=== PATIENT | female | born 1995 | race Two or more races ===

== ENCOUNTER 2018-08-02 10:47 | Observation (INO) | payer MEDICAID ==
[~2018-08-02] VITALS: Ht 152.4 cm; Wt 52.6 kg
[2018-08-02] MEDS ORDERED: NIFEdipine 10 MG CAP PO ONE (12:00)
== END 2018-08-02 12:55 | disposition home or self-care (01) | DRG 563 ==
LOC: LDRP 10:47
PROVIDERS: ADMIT Specialist; ATTEND Specialist
DX: O60.02 Preterm labor without delivery, second trimester (principal); O62.9 Abnormality of forces of labor, unspecified; Z3A.28 28 weeks gestation of pregnancy
CPT/HCPCS: 59025; 81002; G0378

== ENCOUNTER 2018-08-26 15:00 | Observation (INO) | payer MEDICAID ==
[~2018-08-26] VITALS: Ht 162.6 cm; Wt 78.5 kg
[2018-08-26] MEDS ORDERED: LACTATED RINGER'S 1,000 ML IV SCH (15:27)
[2018-08-26] MEDS ORDERED: LACTATED RINGER'S 1,000 ML IV ONE ×3 (15:27→16:15)
[2018-08-26] MEDS ORDERED: TERBUTALINE SULFATE 1 MG/ML 1ML VIAL SC SCH (16:15)
[2018-08-26] MEDS ORDERED: TERBUTALINE SULFATE 1 MG/ML 1ML VIAL SC ONE (16:22)
[2018-08-26] MEDS ORDERED: HYDR250I6 IM (16:35)
[2018-08-26] MEDS ORDERED: NIF10C PO (16:35)
[2018-08-26] MEDS ORDERED: PREN-96 PO (16:35)
[2018-08-26] MEDS ORDERED: NIFEdipine 10 MG CAP PO ONE (19:00)
[2018-08-26] MEDS ORDERED: PENICILLIN G POT 5MIL/D5 50ML 50 ML IV ONE (20:15)
[2018-08-27] MEDS ORDERED: PENICILLIN G POTASSIUM 2,500,000 UNITS in D5W 5% 50 ML IV SCH (00:30)
== END 2018-08-26 19:33 | disposition home or self-care (01) | DRG 563 ==
LOC: LDRP 15:00
PROVIDERS: ADMIT Specialist; ATTEND Specialist
DX: O60.03 Preterm labor without delivery, third trimester (principal); O26.893 Other specified pregnancy related conditions, third trimester; N89.8 Other specified noninflammatory disorders of vagina; Z3A.32 32 weeks gestation of pregnancy
CPT/HCPCS: 59025; 76805; 81002; 96372; G0378; 96365; 96366

== ENCOUNTER 2021-01-06 14:00 | Observation (INO) | payer MEDICAID ==
[~2021-01-06] VITALS: Ht 152.4 cm; Wt 62.1 kg
[~2021-01-06 14:00] MED LIST: PREN-96 PO
[2021-01-06] MEDS ORDERED: TERBUTALINE SULFATE 1 MG/ML 1ML VIAL SC SCH (14:15)
[2021-01-06] MEDS ORDERED: BETAMETHASONE ACET (6MG/ML) 5ML VIAL ONE (14:52)
[2021-01-06 15:04] LABS: Urine Amorphous Crystal FEW /hpf (None Seen); Urine Bacteria FEW /hpf (None Seen); Urine Blood 1+ /uL (Negative); Urine Mucus FEW (None Seen); Urine Specific Gravity 1.019 (1.001-1.035); Urine WBC 156 /hpf (0 - 5); Urine WBC Clumps PRESENT /hpf (None Seen)
[2021-01-06] MEDS ORDERED: NIF10C PO (15:51)
[2021-01-06] MEDS ORDERED: BETAMETHASONE ACET (6MG/ML) 5ML VIAL IM SCH (22:00)
== END 2021-01-06 15:55 | disposition home or self-care (01) ==
LOC: LDRP 14:00
PROVIDERS: ADMIT Obstetrics & Gynecology; ATTEND Obstetrics & Gynecology
DX: O60.03 Preterm labor without delivery, third trimester (principal); O26.873 Cervical shortening, third trimester; Z3A.29 29 weeks gestation of pregnancy
CPT/HCPCS: 59025; 81001; 81002; 96372; G0378; J0702; J3105

== ENCOUNTER 2021-01-07 14:12 | Observation (INO) | payer MEDICAID ==
[~2021-01-07] VITALS: Ht 60 cm; Wt 62.1 kg
[~2021-01-07 14:12] MED LIST changes: +NIF10C PO
[2021-01-07] MEDS ORDERED: BETAMETHASONE ACET (6MG/ML) 5ML VIAL IM ONE (14:30)
== END 2021-01-07 15:18 | disposition home or self-care (01) ==
LOC: LDRP 14:12
PROVIDERS: ADMIT Obstetrics & Gynecology; ATTEND Obstetrics & Gynecology
DX: O60.03 Preterm labor without delivery, third trimester (principal); O34.63 Maternal care for abnormality of vagina, third trimester; N89.8 Other specified noninflammatory disorders of vagina; Z3A.29 29 weeks gestation of pregnancy
CPT/HCPCS: 59025; 81002; 96372; G0378; J0702

== ENCOUNTER 2021-01-13 12:15 | Observation (INO) | payer MEDICAID | END 2021-01-13 13:20 | disposition home or self-care (01) | LOC: LDRP 12:15 | PROVIDERS: ADMIT Specialist; ATTEND Specialist | DX: O60.03 Preterm labor without delivery, third trimester (principal); Z3A.30 30 weeks gestation of pregnancy | CPT/HCPCS: 59025; 81002; G0378 ==

== ENCOUNTER 2021-01-21 11:55 | Observation (INO) | payer MEDICAID | END 2021-01-21 13:31 | disposition home or self-care (01) | LOC: LDRP 11:55 | PROVIDERS: ADMIT Obstetrics & Gynecology; ATTEND Obstetrics & Gynecology | DX: O60.03 Preterm labor without delivery, third trimester (principal); Z3A.31 31 weeks gestation of pregnancy | CPT/HCPCS: 59025; 81002; G0378 ==

== ENCOUNTER 2021-01-27 11:20 | Observation (INO) | payer MEDICAID | END 2021-01-27 13:08 | disposition home or self-care (01) | LOC: LDRP 11:20 | PROVIDERS: ADMIT Specialist; ATTEND Specialist | DX: O60.03 Preterm labor without delivery, third trimester (principal); Z3A.32 32 weeks gestation of pregnancy | CPT/HCPCS: 59025; 81002; G0378 ==

== ENCOUNTER 2021-02-04 14:05 | Observation (INO) | payer MEDICAID | END 2021-02-04 15:04 | disposition home or self-care (01) | LOC: LDRP 14:05 | PROVIDERS: ADMIT Obstetrics & Gynecology; ATTEND Obstetrics & Gynecology | DX: O60.03 Preterm labor without delivery, third trimester (principal); Z3A.33 33 weeks gestation of pregnancy | CPT/HCPCS: 59025; 81002; G0378 ==

== ENCOUNTER 2021-02-11 12:15 | Observation (INO) | payer MEDICAID | END 2021-02-11 13:44 | disposition home or self-care (01) | LOC: LDRP 12:15 | PROVIDERS: ADMIT Obstetrics & Gynecology; ATTEND Obstetrics & Gynecology | DX: O60.03 Preterm labor without delivery, third trimester (principal); Z3A.34 34 weeks gestation of pregnancy | CPT/HCPCS: 59025; 81002; G0378 ==

== ENCOUNTER → 2021-02-24 | Outpatient (CLI) | payer MEDICAID ==
[2021-02-24 12:21] LABS: Basophils # (auto) 0 10 ^3/uL (0-0.2); Basophils % (auto) 0.5 % (0.0-2.0); Eosinophils # (auto) 0.5 10 ^3/uL (0-0.8); Eosinophils % (auto) 5.6 % (0.0-7.0); Hematocrit 37.1 % (36.0-46.0); Hemoglobin 12.5 g/dL (12.2-16.2); Lymphocytes % (auto) 24.5 % (10.0-50.0); Mean Corpuscular Hemoglobin 32.6 pg (28.0-32.0); Mean Corpuscular Hgb Conc. 33.8 g/dL (32.0-36.0); Mean Corpuscular Volume 96.6 fL (80.0-100.0); Monocytes # (auto) 0.6 10 ^3/uL (0-1.3); Monocytes % (auto) 7.6 % (0.0-12.0); Neutrophils # (auto) 5.1 10 ^3/uL (1.6-8.6); Neutrophils % (auto) 61.8 % (37.0-80.0); Nucleated Red Blood Cells % 0.1 %; Platelet Count (auto) 265 10^3/uL (140-450); Red Blood Cells 3.84 10^6/uL (4.0-5.20); Red Cell Distribution Width 13.7 % (11.8-14.3); White Blood Cell 8.2 10^3/uL (4.4-10.8)
[2021-02-25 04:06] LABS: RPR Non Reactive (Non Reactive)
== END | disposition home or self-care (01) ==
LOC: LAB 12:00
PROVIDERS: ATTEND Obstetrics & Gynecology
DX: Z34.80 Encounter for supervision of other normal pregnancy, unspecified trimester (principal)
CPT/HCPCS: 36415; 84112; 85025; 86592; 87081

== ENCOUNTER 2021-03-18 12:22 | Inpatient (IN) | payer MEDICAID ==
[~2021-03-18] VITALS: Ht 152.4 cm; Wt 72.1 kg
[2021-03-18] MEDS ORDERED: BUTORPHANOL TARTRATE 2 MG/1 ML VIAL IV PRN ×2 (12:45)
[2021-03-18] MEDS ORDERED: LACTATED RINGER'S 1,000 ML IV SCH (12:45)
[2021-03-18] MEDS ORDERED: LACT. RINGERS/OXYTOCIN 20UNITS 500 ML IV ONE ×2 (12:45→13:15)
[2021-03-18] MEDS ORDERED: PROMETHAZINE HCL 25 MG/ML 1ML IV PRN (12:45)
[2021-03-18] MEDS ORDERED: LIDOCAINE 2%HCL (LOCAL ANESTH.) INJ 20ML MDV IJ ONE (12:45)
[2021-03-18] MEDS ORDERED: LIDOCAINE 2%HCL (LOCAL ANESTH.) INJ 20ML MDV ONE (13:50)
[2021-03-18] MEDS ORDERED: METHYLERGONOVINE MALEATE 0.2 MG/ML AMP IM ONE (13:56)
[2021-03-18] MEDS ORDERED: miSOPROStol 100 mcg TAB ONE (14:00)
[2021-03-18] MEDS: WITCH HAZEL-GLYCERIN PAD TOP PRN ×2 (14:18→14:38)
[2021-03-18] MEDS: PHISODERM TOP SOLN 240ML BTL TOP PRN ×2 (14:18→14:38)
[2021-03-18] MEDS: DERMOPLAST 60ML BOTTLE TOP PRN ×2 (14:18→14:38)
[2021-03-18 14:19] LABS: Basophils # (auto) 0 10 ^3/uL (0-0.2); Basophils % (auto) 0.3 % (0.0-2.0); Eosinophils # (auto) 0.2 10 ^3/uL (0-0.8); Eosinophils % (auto) 1.8 % (0.0-7.0); Hematocrit 39.3 % (36.0-46.0); Hemoglobin 13.4 g/dL (12.2-16.2); Lymphocytes % (auto) 18.1 % (10.0-50.0); Mean Corpuscular Volume 97.2 fL (80.0-100.0); Monocytes # (auto) 0.8 10 ^3/uL (0-1.3); Monocytes % (auto) 7.2 % (0.0-12.0); Neutrophils # (auto) 8.1 10 ^3/uL (1.6-8.6); Neutrophils % (auto) 72.6 % (37.0-80.0); Platelet Count (auto) 247 10^3/uL (140-450); Red Blood Cells 4.05 10^6/uL (4.0-5.20); Red Cell Distribution Width 14.3 % (11.8-14.3); White Blood Cell 11.1 10^3/uL (4.4-10.8)
[2021-03-18 14:35] LABS: Albumin 2.7 g/dL (3.4-5.0); Calcium 8.6 mg/dL (8.5-10.1)
[2021-03-18 14:36] LABS: INR 0.96 (0.9-1.15); Partial Thromboplastin Time 26.5 sec (23.0-31.2)
[2021-03-18 14:38] LABS: BUN/Creatinine Ratio 10.2; Bilirubin, Total 0.6 mg/dL (0.2-1.0)
[2021-03-18] MEDS ORDERED: POTASSIUM CHL 20 Meq TABLET PO ONE (15:00)
[2021-03-18] MEDS ORDERED: IBUPROFEN 600 MG TAB PO PRN (15:00)
[2021-03-18] MEDS ORDERED: ACETAMINOPHEN 325 MG TAB PO PRN (15:00)
[2021-03-18 15:05] VITALS: BP 127/66
[2021-03-18 15:34] VITALS: BP 117/60
[2021-03-18 16:00] VITALS: BP 112/55
[2021-03-18 16:45] LABS: Urine Bacteria NONE SEEN /hpf (None Seen); Urine Blood 3+ /uL (Negative); Urine Mucus FEW (None Seen); Urine Specific Gravity 1.014 (1.001-1.035); Urine WBC 30 /hpf (0 - 5)
[2021-03-18 17:05] LABS: Amphetamine Screen, Urine NEGATIVE (NEGATIVE); Barbiturate Scree,Urine NEGATIVE (NEGATIVE); Benzodiazephine Screen, Urine NEGATIVE (NEGATIVE); Cannabinoid Screen, Urine POSITIVE (NEGATIVE); Cocaine Screen, Urine NEGATIVE (NEGATIVE); Opiate Scree,Urine NEGATIVE (NEGATIVE); Phencyclidine Screen, Urine NEGATIVE (NEGATIVE)
[2021-03-18 17:31] VITALS: BP 112/64
[2021-03-18 19:15] VITALS: BP 129/60
[2021-03-18 23:00] VITALS: BP 104/85
[2021-03-19 02:48] VITALS: BP 114/68
[2021-03-19 06:30] VITALS: BP 99/53
[2021-03-19 07:06] LABS: RPR Non Reactive (Non Reactive)
[2021-03-19 11:00] VITALS: BP 94/57
[2021-03-19 17:17] VITALS: BP 104/57
== END 2021-03-19 17:17 | disposition home or self-care (01) | DRG 560 ==
LOC: LDRP 12:22 → OBSVTOIN 12:35 → LDRP 16:41
PROVIDERS: ADMIT Obstetrics & Gynecology; ATTEND Obstetrics & Gynecology
PROC: 0HQ9XZZ Repair Perineum Skin, External Approach (ICD-10-PCS; principal; 2021-03-18)
PROC: 10E0XZZ Delivery of Products of Conception, External Approach (ICD-10-PCS; 2021-03-18)
PROC: 10907ZC Drainage of Amniotic Fluid, Therapeutic from Products of Conception, Via Natural or Artificial Opening (ICD-10-PCS; 2021-03-18)
DX: O70.0 First degree perineal laceration during delivery (principal); Z20.822 Contact with and (suspected) exposure to COVID-19; Z37.0 Single live birth; Z3A.39 39 weeks gestation of pregnancy
CPT/HCPCS: 36415; 59025; 59409; 80053; 80307; 81001; 81002; 85025; 85610; 85730; 86592; 86850; 86900; 86901; 87426; 96360; 96361; 96365; 96366; 96372; G0378; J2590

== ENCOUNTER 2024-03-21 11:16 | Observation (INO) | payer MEDICAID ==
[~2024-03-21] VITALS: Ht 160 cm; Wt 58.5 kg
[~2024-03-21 11:16] MED LIST changes: -NIF10C PO
[2024-03-21] MEDS: BETAMETHASONE ACET (30mg/5ml) 5ml Vial 6mg/ml IM ONE (13:27)
[2024-03-21] MEDS: TERBUTALINE SULFATE 1 MG/ML 1ML VIAL SC SCH (13:27)
== END 2024-03-21 14:21 | disposition home or self-care (01) ==
LOC: UNDOADMOB 11:16 → LDRP 11:16
PROVIDERS: ADMIT Obstetrics & Gynecology; ATTEND Obstetrics & Gynecology
DX: O60.03 Preterm labor without delivery, third trimester (principal); O26.873 Cervical shortening, third trimester; O26.893 Other specified pregnancy related conditions, third trimester; N89.8 Other specified noninflammatory disorders of vagina; Z3A.33 33 weeks gestation of pregnancy
CPT/HCPCS: 59025; 76818; 81002; 94760; 96372; G0378; J0702; J3105

== ENCOUNTER 2024-03-22 13:08 | Observation (INO) | payer MEDICAID ==
[~2024-03-22] VITALS: Ht 152.4 cm; Wt 59.0 kg
[2024-03-22] MEDS: BETAMETHASONE ACET (30mg/5ml) 5ml Vial 6mg/ml IM ONE (13:42)
== END 2024-03-22 14:04 | disposition home or self-care (01) ==
LOC: LDRP 13:08 → UNDOADMOB 13:08 → LDRP 13:11
PROVIDERS: ADMIT Obstetrics & Gynecology; ATTEND Obstetrics & Gynecology
DX: O60.03 Preterm labor without delivery, third trimester (principal); O99.323 Drug use complicating pregnancy, third trimester; F12.90 Cannabis use, unspecified, uncomplicated; Z3A.33 33 weeks gestation of pregnancy; Z87.891 Personal history of nicotine dependence
CPT/HCPCS: 59025; 81002; 94760; G0378; 96372

== ENCOUNTER 2024-03-28 09:10 | Observation (INO) | payer MEDICAID ==
[2024-03-28] MEDS ORDERED: NIF10C PO (10:05)
== END 2024-03-28 10:40 | disposition home or self-care (01) ==
LOC: LDRP 09:10 → UNDOADMOB 09:10 → LDRP 09:25
PROVIDERS: ADMIT Obstetrics & Gynecology; ATTEND Obstetrics & Gynecology
DX: O26.873 Cervical shortening, third trimester (principal); Z3A.34 34 weeks gestation of pregnancy; Z88.8 Allergy status to other drugs, medicaments and biological substances; Z87.891 Personal history of nicotine dependence
CPT/HCPCS: 59025; 76818; 81002; 94760; G0378

== ENCOUNTER 2024-04-04 10:31 | Observation (INO) | payer MEDICAID ==
[~2024-04-04 10:31] MED LIST changes: +NIF10C PO
== END 2024-04-04 17:26 | disposition home or self-care (01) ==
LOC: LDRP 16:10
PROVIDERS: ADMIT Obstetrics & Gynecology; ATTEND Obstetrics & Gynecology
DX: O26.873 Cervical shortening, third trimester (principal); O60.03 Preterm labor without delivery, third trimester; O99.324 Drug use complicating childbirth; F12.90 Cannabis use, unspecified, uncomplicated; Z3A.35 35 weeks gestation of pregnancy; Z88.8 Allergy status to other drugs, medicaments and biological substances; Z87.891 Personal history of nicotine dependence
CPT/HCPCS: 59025; 81002; 94760; G0378

== ENCOUNTER → 2024-04-18 | Outpatient (CLI) | payer MEDICAID ==
[2024-04-18 11:55] LABS: Basophils # (auto) 0 10 ^3/uL (0-0.2); Basophils % (auto) 0.3 % (0.0-2.0); Eosinophils # (auto) 0.3 10 ^3/uL (0-0.8); Eosinophils % (auto) 4.2 % (0.0-7.0); Hematocrit 35.1 % (36.0-46.0); Hemoglobin 11.7 g/dL (12.2-16.2); Lymphocytes # (auto) 1.8 10 ^3/uL (0.4-5.4); Lymphocytes % (auto) 21.6 % (10.0-50.0); Mean Corpuscular Hemoglobin 32.1 pg (28.0-32.0); Mean Corpuscular Hgb Conc. 33.3 g/dL (32.0-36.0); Mean Corpuscular Volume 96.3 fL (80.0-100.0); Monocytes # (auto) 0.5 10 ^3/uL (0-1.3); Monocytes % (auto) 6.3 % (0.0-12.0); Neutrophils # (auto) 5.5 10 ^3/uL (1.6-8.6); Neutrophils % (auto) 67.6 % (37.0-80.0); Red Blood Cells 3.65 10^6/uL (4.0-5.20); Red Cell Distribution Width 15.7 % (11.8-14.3); White Blood Cell 8.2 10^3/uL (4.4-10.8)
[2024-04-19 08:06] LABS: RPR Non Reactive (Non Reactive)
[2024-04-19 21:06] LABS: Chlamydia Trachomatis, NAA Negative (Negative); Neisseria gonorrhoeae, NAA Negative (Negative)
== END | disposition home or self-care (01) ==
LOC: LAB 11:32
PROVIDERS: ATTEND Obstetrics & Gynecology
DX: Z34.80 Encounter for supervision of other normal pregnancy, unspecified trimester (principal); Z3A.00 Weeks of gestation of pregnancy not specified
CPT/HCPCS: 36415; 85025; 86592

== ENCOUNTER 2024-05-02 04:25 | Inpatient (IN) | payer MEDICAID ==
[~2024-05-02] VITALS: Ht 152.4 cm; Wt 66.2 kg
[2024-05-02] MEDS ORDERED: LIDOCAINE 2%HCL (LOCAL ANESTH.) INJ 20ML MDV IJ PRN (04:45)
[2024-05-02] MEDS ORDERED: PHISODERM TOP SOLN 240ML BTL TOP PRN (04:45)
[2024-05-02] MEDS ORDERED: DERMOPLAST 60ML BOTTLE TOP PRN (04:45)
[2024-05-02] MEDS ORDERED: LACTATED RINGER'S 1,000 ML IV SCH (04:45)
[2024-05-02] MEDS ORDERED: WITCH HAZEL-GLYCERIN PAD TOP PRN (04:45)
[2024-05-02] MEDS ORDERED: BUTORPHANOL TARTRATE 2 MG/1 ML VIAL IV PRN ×2 (04:45)
[2024-05-02] MEDS ORDERED: miSOPROStol 100 mcg TAB SL PRN (05:00)
[2024-05-02] MEDS ORDERED: METHYLERGONOVINE MALEATE 0.2 MG/ML AMP IM ONE (05:00)
[2024-05-02] MEDS ORDERED: ONDANSETRON HCL 4 MG/2 ML VIAL IV PRN (05:00)
[2024-05-02] MEDS ORDERED: miSOPROStol 100 mcg TAB PR PRN (05:00)
[2024-05-02] MEDS ORDERED: CARBOPROST TROMETHAMINE 250 MCG/1ML VIAL IM PRN (05:00)
[2024-05-02] MEDS: LACT. RINGERS/OXYTOCIN 20UNITS 500 ML IV ONE ×2 (05:47→05:48)
[2024-05-02 06:19] LABS: Basophils # (auto) 0 10 ^3/uL (0-0.2); Basophils % (auto) 0.3 % (0.0-2.0); Eosinophils # (auto) 0.4 10 ^3/uL (0-0.8); Eosinophils % (auto) 3.9 % (0.0-7.0); Hematocrit 36.6 % (36.0-46.0); Hemoglobin 12.3 g/dL (12.2-16.2); Lymphocytes % (auto) 29.7 % (10.0-50.0); Mean Corpuscular Hemoglobin 31.9 pg (28.0-32.0); Mean Corpuscular Hgb Conc. 33.7 g/dL (32.0-36.0); Mean Corpuscular Volume 94.7 fL (80.0-100.0); Monocytes # (auto) 0.7 10 ^3/uL (0-1.3); Monocytes % (auto) 7.1 % (0.0-12.0); Neutrophils # (auto) 5.9 10 ^3/uL (1.6-8.6); Nucleated Red Blood Cells % 0.1 %; Red Blood Cells 3.86 10^6/uL (4.0-5.20); Red Cell Distribution Width 16.1 % (11.8-14.3); White Blood Cell 10.1 10^3/uL (4.4-10.8)
[2024-05-02 06:22] LABS: Partial Thromboplastin Time 25.6 SEC (24.5-34.5); Prothrombin Time 10.6 sec (9.3-11.8)
[2024-05-02 06:30] LABS: Alanine Aminotransferase 11 U/L (7-40); Albumin 3.6 g/dL (3.2-4.8); Alkaline Phosphatase 140 U/L (46-116); Anion Gap 12 (5-15); Aspartate Aminotransferase 12 U/L (13-40); Bilirubin, Total 0.4 mg/dL (0.2-1.0); Calcium 9.1 mg/dL (8.5-10.1); Carbon Dioxide 18 mmol/L (20-30); Chloride 109 mmol/L (98-107); Glucose 94 mg/dL (74-106); Potassium 3.1 mmol/L (3.5-5.1); Sodium 139 mmol/L (136-145); Total Protein 5.9 g/dL (5.7-8.2)
[2024-05-02 06:43] LABS: BUN/Creatinine Ratio 11.9 (10.0-20.0); Blood Urea Nitrogen < 5 mg/dL (9-23)
[2024-05-02] MEDS ORDERED: ACETAMINOPHEN 325 MG TAB PO PRN (06:45)
[2024-05-02] MEDS ORDERED: ONDANSETRON ODT 4 MG TAB PO PRN (06:45)
[2024-05-02 07:48] LABS: Urine Bacteria None Seen /hpf (None Seen)
[2024-05-02 08:29] LABS: Urine Blood 1+ /uL (Negative); Urine Clarity Clear (Clear); Urine Color Light-Yellow (Yellow); Urine Protein, UAD TRACE (Negative); Urine Specific Gravity 1.014 (1.001-1.035); Urine Urobilinogen Normal (Negative); Urine WBC 1 /hpf (0 - 5); Urine pH 6.5 (5.0-9.0)
[2024-05-02 08:37] LABS: Amphetamine Screen, Urine Neg (NEGATIVE); Barbiturate Scree,Urine Neg (NEGATIVE); Benzodiazephine Screen, Urine Neg (NEGATIVE); Cannabinoid Screen, Urine Neg (NEGATIVE); Cocaine Screen, Urine Neg (NEGATIVE); Opiate Scree,Urine Neg (NEGATIVE); Phencyclidine Screen, Urine Neg (NEGATIVE)
[2024-05-02] MEDS ORDERED: DIPHENOXYLATE W/ATROPINE 2.5 MG TAB PO SCH (10:00)
[2024-05-02 10:35] VITALS: BP 110/71; PULSE 78; RESP 20; TEMP 98.3; O2SAT 97
[2024-05-02 15:00] VITALS: BP 98/59; PULSE 97; RESP 20; TEMP 98.6; O2SAT 98
[2024-05-02] MEDS: POTASSIUM CHL 20 Meq TABLET PO ONE (16:02)
[2024-05-02] MEDS: IBUPROFEN 600 MG TAB PO PRN (16:07)
[2024-05-02 18:50] VITALS: BP 111/74; PULSE 92; RESP 18; TEMP 98.3; O2SAT 97
[2024-05-02] MEDS: DOCUSATE SOD 100 MG CAP PO SCH (22:15)
[2024-05-02 23:00] VITALS: BP 99/62; PULSE 84; RESP 16; TEMP 98; O2SAT 96
[2024-05-03] MEDS ORDERED: IBU600T PO (02:28)
[2024-05-03] MEDS ORDERED: DOCU-265 PO (02:28)
[2024-05-03 02:41] VITALS: BP 99/68; PULSE 80; RESP 16; TEMP 97.8; O2SAT 96
[2024-05-03 07:06] LABS: RPR Non Reactive (Non Reactive)
[2024-05-03 07:10] VITALS: BP 97/58; PULSE 79; RESP 18; TEMP 97.8; O2SAT 98
[2024-05-03 09:23] LABS: Basophils # (auto) 0 10 ^3/uL (0-0.2); Basophils % (auto) 0.4 % (0.0-2.0); Eosinophils # (auto) 0.7 10 ^3/uL (0-0.8); Eosinophils % (auto) 5.4 % (0.0-7.0); Hematocrit 37.1 % (36.0-46.0); Hemoglobin 12.5 g/dL (12.2-16.2); Lymphocytes # (auto) 2.6 10 ^3/uL (0.4-5.4); Lymphocytes % (auto) 20.3 % (10.0-50.0); Mean Corpuscular Hemoglobin 32.2 pg (28.0-32.0); Mean Corpuscular Hgb Conc. 33.7 g/dL (32.0-36.0); Mean Corpuscular Volume 95.6 fL (80.0-100.0); Monocytes # (auto) 0.6 10 ^3/uL (0-1.3); Monocytes % (auto) 4.9 % (0.0-12.0); Neutrophils # (auto) 8.7 10 ^3/uL (1.6-8.6); Nucleated Red Blood Cells % 0.1 %; Red Blood Cells 3.88 10^6/uL (4.0-5.20); Red Cell Distribution Width 16.2 % (11.8-14.3); White Blood Cell 12.6 10^3/uL (4.4-10.8)
[2024-05-03 09:25] LABS: Alanine Aminotransferase 12 U/L (7-40); Alkaline Phosphatase 120 U/L (46-116); Calcium 9.1 mg/dL (8.5-10.1); Carbon Dioxide 22 mmol/L (20-30); Chloride 109 mmol/L (98-107)
[2024-05-03 09:26] LABS: Albumin 3.5 g/dL (3.2-4.8); Anion Gap 6 (5-15); Aspartate Aminotransferase 23 U/L (13-40); Bilirubin, Total 0.3 mg/dL (0.2-1.0); Glucose 104 mg/dL (74-106); Sodium 137 mmol/L (136-145); Total Protein 5.7 g/dL (5.7-8.2)
[2024-05-03 09:29] LABS: BUN/Creatinine Ratio 11.9 (10.0-20.0); Blood Urea Nitrogen < 5 mg/dL (9-23)
[2024-05-03 11:12] VITALS: BP 112/66; PULSE 91; RESP 17; TEMP 98.4; O2SAT 98
[2024-05-03 14:47] VITALS: BP 109/74; PULSE 89; RESP 16; TEMP 98.5; O2SAT 98
[2024-05-07 19:06] LABS: Treponema pallidum Ab (FTA-Ab) Non Reactive (Non Reactive)
== END 2024-05-03 17:39 | disposition home or self-care (01) | DRG 560 ==
LOC: LDRP 04:25 → OBSVTOIN 04:32 → LDRP 08:21
PROVIDERS: ADMIT Obstetrics & Gynecology; ATTEND Obstetrics & Gynecology
PROC: 10E0XZZ Delivery of Products of Conception, External Approach (ICD-10-PCS; principal; 2024-05-02)
DX: O77.0 Labor and delivery complicated by meconium in amniotic fluid (principal); Z37.0 Single live birth; D62 Acute posthemorrhagic anemia; O69.1XX0 Labor and delivery complicated by cord around neck, with compression, not applicable or unspecified; O70.0 First degree perineal laceration during delivery; O99.02 Anemia complicating childbirth; O71.82 Other specified trauma to perineum and vulva; Z3A.39 39 weeks gestation of pregnancy
CPT/HCPCS: 36415; 59025; 59409; 80053; 80307; 81001; 85025; 85610; 85730; 86592; 86803; 86850; 86900; 86901; 94760; G0378; J2590

== ENCOUNTER 2024-07-27 06:27 | Day surgery (SDC) | payer MEDICAID ==
[2024-07-24 12:36] LABS: Urine Bacteria None Seen /hpf (None Seen)
[2024-07-24 13:15] LABS: Basophils # (auto) 0.1 10 ^3/uL (0-0.2); Basophils % (auto) 0.8 % (0.0-2.0); Eosinophils # (auto) 0.5 10 ^3/uL (0-0.8); Eosinophils % (auto) 7.8 % (0.0-7.0); Hematocrit 35.9 % (36.0-46.0); Hemoglobin 12.4 g/dL (12.2-16.2); Lymphocytes # (auto) 2.3 10 ^3/uL (0.4-5.4); Lymphocytes % (auto) 37.6 % (10.0-50.0); Mean Corpuscular Hemoglobin 33.6 pg (28.0-32.0); Mean Corpuscular Hgb Conc. 34.7 g/dL (32.0-36.0); Mean Corpuscular Volume 96.9 fL (80.0-100.0); Monocytes # (auto) 0.4 10 ^3/uL (0-1.3); Monocytes % (auto) 6.4 % (0.0-12.0); Neutrophils # (auto) 2.9 10 ^3/uL (1.6-8.6); Neutrophils % (auto) 47.4 % (37.0-80.0); Nucleated Red Blood Cells % 0.1 %; Platelet Count (auto) 302 10^3/uL (140-450); White Blood Cell 6.2 10^3/uL (4.4-10.8)
[2024-07-24 13:25] LABS: Urine Mucus FEW (None Seen); Urine WBC 89 /hpf (0 - 5); Urine WBC Clumps PRESENT /hpf (None Seen)
[2024-07-24 13:27] LABS: Alanine Aminotransferase 29 U/L (7-40); Albumin 4.5 g/dL (3.2-4.8); Alkaline Phosphatase 68 U/L (46-116); Anion Gap 10 (5-15); Aspartate Aminotransferase 11 U/L (13-40); BUN/Creatinine Ratio 17.6 (10.0-20.0); Blood Urea Nitrogen 9 mg/dL (9-23); Calcium 9.8 mg/dL (8.7-10.4); Carbon Dioxide 23 mmol/L (20-30); Chloride 107 mmol/L (98-107); Glucose 90 mg/dL (74-106); Potassium 3.8 mmol/L (3.5-5.1); Sodium 140 mmol/L (136-145)
[2024-07-24 13:28] LABS: Bilirubin, Total 0.6 mg/dL (0.2-1.0)
[2024-07-24 13:42] LABS: Urine Blood 1+ /uL (Negative); Urine Clarity TURBID (Clear); Urine Color Light Yellow (Yellow); Urine Protein, UAD Normal (Negative); Urine Specific Gravity 1.021 (1.001-1.035); Urine Urobilinogen Normal (Negative); Urine pH 6.5 (5.0-9.0)
[2024-07-24 13:44] LABS: Prothrombin Time 10.8 sec (9.3-11.8)
[2024-07-24 13:45] LABS: Partial Thromboplastin Time 27.1 SEC (24.5-34.5)
[~2024-07-27] VITALS: Ht 152.4 cm; Wt 62.1 kg
[2024-07-27] MEDS ORDERED: ePHEDrine SULFATE 50 MG/ML AMP IV PRN (06:30)
[2024-07-27] MEDS ORDERED: ONDANSETRON HCL 4 MG/2 ML VIAL IV ONE (06:30)
[2024-07-27] MEDS ORDERED: fentaNYL CITRATE 100 MCG/2 ML VL IV PRN ×2 (06:30→09:00)
[2024-07-27] MEDS ORDERED: fentaNYL CITRATE 100 MCG/2 ML VL ONE (06:43)
[2024-07-27] MEDS ORDERED: MIDAZOLAM HCL 2MG/2ML 2ml VIAL (1mg/ml) ONE (06:43)
[2024-07-27] MEDS: ceFAZolin 2 GM/D5W50ml 50 ML IV ONE (07:15)
[2024-07-27] MEDS: BUPIVACAINE 0.25% INJ 50ML VIAL ONE (07:47)
[2024-07-27] MEDS: LIDOCAINE W/ EPINEPHRINE 1% 20ML VIAL ONE (07:47)
[2024-07-27] MEDS ORDERED: ONDANSETRON HCL 4 MG/2 ML VIAL ONE (07:49)
[2024-07-27] MEDS ORDERED: SUGAMMADEX 200mg/2ml Vial (100MG/ML) IV ONE (07:54)
[2024-07-27] MEDS ORDERED: HYDR-4072 PO (08:33)
[2024-07-27] MEDS ORDERED: ZOFR4T PO (08:33)
[2024-07-27 08:34] VITALS: PULSE 96; RESP 14; TEMP 98; O2SAT 98
[2024-07-27] MEDS ORDERED: LACTATED RINGER'S 1,000 ML IV SCH (08:45)
[2024-07-27] MEDS ORDERED: ONDANSETRON HCL 4 MG/2 ML VIAL IV PRN (08:45)
[2024-07-27] MEDS: fentaNYL CITRATE 100 MCG/2 ML VL IV ONE (08:48)
[2024-07-27 09:20] VITALS: BP 111/60; PULSE 99; RESP 16; O2SAT 99
== END 2024-07-27 09:50 | disposition home or self-care (01) ==
LOC: SUR 06:27
PROVIDERS: ATTEND Obstetrics & Gynecology
DX: Z30.2 Encounter for sterilization (principal); Z88.4 Allergy status to anesthetic agent; Z98.890 Other specified postprocedural states
CPT/HCPCS: 36415; 58671; 80053; 81001; 81025; 84702; 85025; 85610; 85730; 86850; 86900; 86901; A4264; J0690; J2250; J2405; J3010; J3490